=== PATIENT | female | born 1950 | race Caucasian/White ===

== ENCOUNTER 2019-08-03 08:26 | Day surgery (SDC) | payer MEDICARE, OTHER ==
[~2019-08-03] VITALS: Ht 160 cm; Wt 100.2 kg
--- NOTE | ~2019-08-03 | OR ---
[facility] [address], [place] [address] Draft DATE OF OPERATION: 08/03/2019 SURGEON: Svitlana Teran MD PREOPERATIVE DIAGNOSES: 1. Personal history of hyperplastic colonic polyps (2008). 2. Constipation. 3. Internal hemorrhoids. POSTOPERATIVE DIAGNOSES: 1. 5 mm polyp, proximal right colon. 2. 3 mm polyps x2 at 8 cm. 3. Minimal sigmoid diverticulosis. 4. Xpoillq-pz-brrwslku internal hemorrhoids. 5. Long redundant angulated colon. PROCEDURE: Colonoscopy with hot biopsy. ESTIMATED BLOOD LOSS: None. INDICATIONS: Keren is a 69-year-old female, who returns for a followup colonoscopy. She had hyperplastic polyps removed back in 2008. She is known to have internal hemorrhoids along with chronic constipation. She gives no family history of colon cancer or polyps. Her mother of stroke at age 90 and dad lived to be 96 years of age and of old age two years after his . Other than chronic constipation, Keren has no lower GI complaints. I met with Keren in the office and I gave her a pamphlet on colonoscopy. We reviewed the nature of the test along with the risks including, but not limited to gas, bloating, crampy abdominal pain, bleeding, perforation requiring surgery, and missed diagnosis. Previously, she did well with her Versed and fentanyl. She had expressed understanding and wished to proceed. PROCEDURE NOTE: Keren was taken into our endoscopy suite and placed in left lateral decubitus position. She was given IV sedation with 12 mg of Versed and 200 mcg of fentanyl. She was frequently awake and moaning during the procedure due to her long redundant angulated colon. We had to use abdominal compression and additional Versed and fentanyl until we finally made it into the cecum itself. It took more than twice the time as PATIENT NAME: KEREN MARIE OPERATIVE REPORT DATE OF : 52 REPORT #: [id number] PHYSICIAN: SVITLANA TERAN MD PCP: CARLYLE LOCO MD REPORT IS CONFIDENTIAL AND NOT TO BE RELEASED WITHOUT AUTHORIZATION [facility] [address], [place] [address] Draft usual. It would be sanches for Keren to use propofol for all future colonoscopies. Her prep was good. We could easily see the appendiceal orifice and the ileocecal valve. The scope was then slowly withdrawn. The above-mentioned polyps were easily removed with the help of hot biopsy forceps. On this occasion, she has just a few small diverticula in the sigmoid colon. They were small in size, few in number, and scattered about. The scope had been retroflexed in the rectum and she does have hggjjfi-un-jocsalfd internal hemorrhoid columns. After this, the gas was suctioned out and colonoscope removed. Overall, Keren tolerated the procedure as above. RECOMMENDATIONS: I will see Keren back in my office in 7 to 14 days to review her results. For future colonoscopy, she should strongly consider propofol infusion. Svitlana Teran MD ALB/MODL /[id number] cc: MD Svitlana Baum MD Copies: CARLYLE LOCO MD, ANDREW L MD ~ PATIENT NAME: KEREN MARIE OPERATIVE REPORT DATE OF : 52 REPORT #: [id number] PHYSICIAN: SVITLANA TERAN MD PCP: CARLYLE LOCO MD REPORT IS CONFIDENTIAL AND NOT TO BE RELEASED WITHOUT AUTHORIZATION
[~2019-08-03 08:26] MED LIST: ADULT LOW DOSE81 MG PO; CALCIUM CITRAT250 MG PO; CEREFOLIN TABL1 EACH PO; EFFEXOR XR75 MG PO; FISH OIL DR 1,1 EACH PO; FISH OIL300 MG PO; LISINOPRIL40 MG PO; NORCO 5-325 TA1 EACH PO; OSTEO BI-FLEX1 EACH PO; OXYBUTYNIN CHLOR5 MG PO; PENICILLIN V P500 MG PO; PLAQUENIL200 MG PO; PREDNISONE5 MG PO; VITAMIN C500 MG PO; VITAMIN D31000 UNIT PO
--- NOTE | 2019-08-03 10:36 | NUR ---
08/03/19 1036 Sheets,Aliya 1031 PT ARRIVED TO PACU ON 3L VIA NC, PT REACTIVE TO TECTILE STIMULI. PT REPORTS SMALL AMOUNT OF PAIN IN ABD, PT ENOUCRGED TO PASS GAS. PT BACK TO SLEEP. RESP EVEN AND UNLABORED. 1035 PT PASSING GAS.
== END 2019-08-03 11:31 | disposition home or self-care (01) ==
LOC: DS 08:26 → OPS 08:26 → DS 09:45 → OPS 09:45
PROVIDERS: Colon & Rectal Surgery
PROC: 0DBP8ZZ Excision of Rectum, Via Natural or Artificial Opening Endoscopic (ICD-10-PCS; 2019-08-03)
PROC: 0DBK8ZZ Excision of Ascending Colon, Via Natural or Artificial Opening Endoscopic (ICD-10-PCS; principal; 2019-08-03 09:45)
DX: Z12.11 Encounter for screening for malignant neoplasm of colon (principal); D12.2 Benign neoplasm of ascending colon; K62.1 Rectal polyp; K64.8 Other hemorrhoids; Q43.8 Other specified congenital malformations of intestine; K59.09 Other constipation; I10 Essential (primary) hypertension; Z86.010 Personal history of colon polyps; G47.00 Insomnia, unspecified; Z98.890 Other specified postprocedural states; Z79.82 Long term (current) use of aspirin; Z79.899 Other long term (current) drug therapy
CPT/HCPCS: 99153; G0500; J2250; J3010; J7120

== ENCOUNTER 2022-04-25 13:49 | Emergency (ER) | payer MEDICARE, OTHER ==
[~2022-04-25] VITALS: Ht 160 cm; Wt 95.7 kg
[2022-04-25] MEDS ORDERED: LEVOFLOXACIN500 MG PO (14:10)
[2022-04-25] MEDS ORDERED: FOLIC ACID1 MG PO (14:10)
[2022-04-25] MEDS ORDERED: BENZONATATE100 MG PO (14:10)
[2022-04-25] MEDS ORDERED: METHYLPREDNISOLO4 M1 PO (14:11)
[2022-04-25] MEDS ORDERED: VENTOLIN HFA18 GM INH (14:13)
== END 2022-04-25 15:56 | disposition home or self-care (01) ==
LOC: ED 13:49
DX: J45.909 Unspecified asthma, uncomplicated (principal); Z20.822 Contact with and (suspected) exposure to COVID-19; I10 Essential (primary) hypertension; M81.0 Age-related osteoporosis without current pathological fracture; Z79.899 Other long term (current) drug therapy; Z79.82 Long term (current) use of aspirin; Z79.52 Long term (current) use of systemic steroids
CPT/HCPCS: 71045; 87502; 94640; 99283-25; C9803; U0003

== ENCOUNTER 2023-07-08 02:12 | Emergency (ER) | payer MEDICARE, OTHER ==
[~2023-07-08] VITALS: Ht 160 cm; Wt 98.9 kg
--- OUTSIDE RECORDS SUMMARY | ~2023-07-08 | XMS | Continuity of Care Document ---
Demographics + + + | Address | [address] | | | [place] [address] | + + + | Preferred Language | Unknown | + + + | Marital Status | | + + + | Sikh Affiliation | Unknown | + + + | Race | White | + + + | Ethnic Group | Unknown | + + + Author + + + | Author | [facility] | + + + | Organization | [facility] | + + + | Address | [address] | | | [place] [address] | + + + | Phone | | + + + Care Team Providers + + + + | Care Track Man Name | Role | Phone | + + + + Unavailable | Unavailable | + + + + Allergies No information. Encounters No information. Functional Status No information. Immunizations No information. Medications No information. Problems + + + + | date | description | facility | + + + + | 2022-03-12 05:49 | MILD PERSISTENT ASTHMA, | [facility] | | | UNCOMPLICATED | | + + + + | 2023-01-07 20:31 | HYPERSOMNIA, UNSPECIFIED | [facility] | + + + + | 2023-01-07 20:31 | OBSTRUCTIVE SLEEP APNEA | [facility] | | | (ADULT) (PEDIATRIC) | | + + + + | 2023-01-07 20:31 | OTHER DISORDERS OF LUNG | [facility] | + + + + | 2023-01-07 20:31 | OTHER SPECIFIED COUNSELING | [facility] | | | | | + + + + | 2023-03-17 15:49 | CARDIAC ARRHYTHMIA, | [facility] | | | UNSPECIFIED | | + + + + | 2023-05-25 09:24 | OTHER SPECIFIED SOFT | [facility] | | | TISSUE DISORDERS | | + + + + | 2023-05-25 09:24 | UNSPECIFIED SPRAIN OF | [facility] | | | RIGHT WRIST, INITI | | + + + + | 2023-05-25 09:24 | UNSPECIFIED SPRAIN OF | [facility] | | | RIGHT WRIST, INITIAL | | | | ENCOUNTER | | + + + + Procedures No information. Results/Labs No information. Social History No information. Vital Signs No information."
--- OUTSIDE RECORDS SUMMARY | ~2023-07-08 | XMS | Continuity of Care Document ---
Demographics + + + | Address | [address] | | | [place] [address] | + + + | Preferred Language | Unknown | + + + | Marital Status | | + + + | Denominational Affiliation | Unknown | + + + | Race | White | + + + | Ethnic Group | Unknown | + + + Author + + + | Author | [facility] | + + + | Organization | [facility] | + + + | Address | [address] | | | [place] [address] | + + + | Phone | | + + + Care Team Providers + + + + | Care Irrigation District Manager Name | Role | Phone | + [...]
[~2023-07-08 02:12] MED LIST changes: +BENZONATATE100 MG PO; +FOLIC ACID1 MG PO; +LEVOFLOXACIN500 MG PO; +METHYLPREDNISOLO4 M1 PO; +VENTOLIN HFA18 GM INH
[2023-07-08 02:44] LABS: BASOPHILS 0.6 % (0-2); HEMATOCRIT 38.5 % (35.0-50.0); HEMOGLOBIN 12.9 g/dL (12.0-18.0); MCHC 33.6 g/dl (30-36); MCV 86.5 fl (81-99); MONOCYTES 6.1 % (0-12); NEUTROPHILS 75.3 % (39-80); PLATELET COUNT 153 K/uL (140-440); RBC 4.45 M/ul (4.3-5.7); RDW 12.7 (10.5-15.0)
[2023-07-08 02:59] LABS: ALBUMIN 3.6 g/dL (3.4-5.0); ALBUMIN/GLOBULIN RATIO 0.97 (1.1-2.4); ANION GAP 12.4 (7-21); BILIRUBIN, TOTAL 0.6 ng/dL (0.2-1.0); BUN/CREATININE RATIO 13.41 (6.0-28.6); CALCIUM 9.3 mg/dL (8.5-10.1); CREATININE, SERUM 0.82 mg/dL (0.55-1.02); POTASSIUM 4.4 mmol/L (3.5-5.1); PROTEIN, TOTAL 7.3 g/dL (6.4-8.2)
[2023-07-08] MEDS ORDERED: HUMIRA PEN40 MG/0.4 SUB-Q (02:59)
[2023-07-08] MEDS ORDERED: ADVAIR HFA 230-12 GM (02:59)
[2023-07-08] MEDS ORDERED: ALLEGRA ALLERG180 MG PO (03:00)
[2023-07-08] MEDS ORDERED: XALATAN2.5 ML OPTH (03:00)
[2023-07-08 03:19] LABS: BILIRUBIN, URINE NEGATIVE (negative); BLOOD/HGB, URINE NEGATIVE (Negative); KETONE, URINE NEGATIVE (Negative); LEUK ESTERASE, URINE NEGATIVE (negative); NITRITE, URINE NEGATIVE (negative); PH, URINE 7.5 (5-7)
[2023-07-08 04:22] LABS: INFLUENZA B NAA NEGATIVE (NEGATIVE); RESPIRATORY SYNCYTIAL VIR NAA NEGATIVE (NEGATIVE)
[2023-07-08] MEDS ORDERED: HYDROCODON-ACE1 EA10 PO (04:28)
[2023-07-08] MEDS ORDERED: ONDANSETRON ODT8 MG PO (04:28)
[2023-07-08 04:50] VITALS: BP 131/62
== END 2023-07-08 04:50 | disposition home or self-care (01) ==
LOC: ED 02:12
PROVIDERS: Family Medicine
DX: B34.9 Viral infection, unspecified (principal); Z20.822 Contact with and (suspected) exposure to COVID-19; I10 Essential (primary) hypertension; Z79.51 Long term (current) use of inhaled steroids; J45.909 Unspecified asthma, uncomplicated; Z79.82 Long term (current) use of aspirin; Z79.899 Other long term (current) drug therapy
CPT/HCPCS: 36415; 74176; 80053; 81003; 83690; 85025; 87502; 96365; 96375; 99284-25; A9270; J2270; J2405; J7030; U0002

== ENCOUNTER 2023-10-17 12:40 | Emergency (ER) | payer MEDICARE, OTHER ==
[~2023-10-17] VITALS: Ht 160 cm; Wt 97.5 kg
[~2023-10-17 12:40] MED LIST changes: +ADVAIR HFA 230-12 GM; +ALLEGRA ALLERG180 MG PO; +HUMIRA PEN40 MG/0.4 SUB-Q; +HYDROCODON-ACE1 EA10 PO; +ONDANSETRON ODT8 MG PO; +XALATAN2.5 ML OPTH
[2023-10-17 13:00] LABS: BASOPHILS 2.4 % (0-2); EOSINOPHILS 4.5 % (0-6); HEMATOCRIT 41.5 % (35.0-50.0); HEMOGLOBIN 14.1 g/dL (12.0-18.0); LYMPHOCYTES 31.8 % (24-44); MCH 28.9 (27-36); MCV 85.1 fl (81-99); MONOCYTES 8.3 % (0-12); PLATELET COUNT 182 K/uL (140-440); RBC 4.87 M/ul (4.3-5.7); RDW 12.9 (10.5-15.0)
[2023-10-17 13:17] LABS: ALBUMIN 3.5 g/dL (3.4-5.0); ALBUMIN/GLOBULIN RATIO 0.88 (1.1-2.4); ANION GAP 13.4 (7-21); BILIRUBIN, TOTAL 0.5 ng/dL (0.2-1.0); BUN/CREATININE RATIO 17.89 (6.0-28.6); CREATININE, SERUM 0.95 mg/dL (0.55-1.02); POTASSIUM 3.4 mmol/L (3.5-5.1); PROTEIN, TOTAL 7.5 g/dL (6.4-8.2)
[2023-10-17 13:40] LABS: INFLUENZA B NAA NEGATIVE (NEGATIVE); RESPIRATORY SYNCYTIAL VIR NAA NEGATIVE (NEGATIVE)
[2023-10-17] MEDS ORDERED: PREDNISONE20 MG PO (14:21)
[2023-10-17 14:42] VITALS: BP 162/69
--- NOTE | 2023-10-17 22:57 | EKG ---
[facility] [address] [place] [address] Signed Sinus rhythm with occasional premature ventricular complexes Nonspecific ST and T wave abnormality Prolonged QT Abnormal ECG No previous ECGs available Confirmed by Sol Albright MD () on 10/17/2023 10:57:04 PM Electronically Signed By: SOL ALBRIGHT MD 10/17/23 2257 PATIENT NAME: BEATRIZ MARIE FERNANDAFrancisca Electrocardiogram DATE OF : 52 PHYSICIAN: SOL ALBRIGHT MD REPORT #: [id number] REPORT IS CONFIDENTIAL AND NOT TO BE RELEASED WITHOUT AUTHORIZATION
== END 2023-10-17 14:34 | disposition home or self-care (01) ==
LOC: ED 12:40
PROVIDERS: Emergency Medicine
DX: J45.901 Unspecified asthma with (acute) exacerbation (principal); G47.30 Sleep apnea, unspecified; I10 Essential (primary) hypertension; Z79.899 Other long term (current) drug therapy; Z79.82 Long term (current) use of aspirin; Z20.822 Contact with and (suspected) exposure to COVID-19
CPT/HCPCS: 36415; 71045; 80053; 83735; 83880; 84484; 85025; 87502; 93005; 93010; 94640; C9803; J7512; U0002